=== PATIENT | female | born 1950 | race African-American/Black ===

== ENCOUNTER → 2021-10-26 | Day surgery (SDC) | payer OTHER, MEDICARE ==
--- NOTE | 2021-10-26 13:03 | RAD REPORT ---
EXAM DESCRIPTION: US - Guided FNA Non Breast - 10/26/2021 11:06 am CLINICAL HISTORY: Thyroid nodule ICD E04.1 COMPARISON: October 26 2021 ultrasound TECHNIQUE: Risks, benefits and alternatives of procedure explained to the patient and informed conse nt obtained. Skin and subcutaneous tissues anesthetized with lidocaine. Under sonographic guidance, five 25 gauge needle passes were obtained into the 2.9 centimeter nodule within the superior aspect of the left lobe of the thyroid. Five 25 gauge needle passes were then obtained into the 3.8 centimeter nodule within the inferior asp ect of the left lobe of the thyroid gland Specimens given to pathology. Patient experienced no immediate complication IMPRESSION: Fine-needle aspiration of a 2 nodules within the left lobe of the thyroid gland
--- NOTE | 2021-10-29 10:17 | RAD REPORT ---
EXAM DESCRIPTION: US - FINE NEEDLE ASPIRATION 2ND LES - 10/26/2021 11:06 am CLINICAL HISTORY: Thyroid nodule ICD E04.1 COMPARISON: October 26 2021 ultrasound TECHNIQUE: Risks, benefits and alternatives of procedure explained to the patient and informed conse nt obtained. Skin and subcutaneous tissues anesthetized with lidocaine. Under sonographic guidance, five 25 gauge needle passes were obtained into the 2.9 centimeter nodule within the superior aspect of the left lobe of the thyroid. Five 25 gauge needle passes were then obtained into the 3.8 centimeter nodule within the inferior asp ect of the left lobe of the thyroid gland Specimens given to pathology. Patient experienced no immediate complication IMPRESSION: Fine-needle aspiration of 2 nodules within the left lobe of the thyroid gland
== END ==
LOC: FNA 09:15
PROVIDERS: ATTEND Family Medicine
DX: E04.1 Nontoxic single thyroid nodule (principal)
CPT/HCPCS: 10006; 88162

== ENCOUNTER 2022-12-31 10:52 | Emergency (ER) | payer OTHER, MEDICARE ==
[2022-12-31] MEDS ORDERED: AMOX/K CLAV 875 MG TAB ONE (11:50)
[2022-12-31] MEDS ORDERED: TDAP (DIPHTH,PERTUSS(ACELL),TET VAC) 0.5 ML VIAL IMVAC ONE (11:51)
--- NOTE | 2022-12-31 12:32 | ER ---
Nurse's Notes [facility] Name: Pati Hoyt Age: 72 yrs Sex: Female : 1950 Arrival Date: 12/31/2022 Time: 10:52 Bed 10 Private MD: Diagnosis: Bitten by cat;Puncture wound without foreign body of hand Presentation: 12/31 11:11 Chief complaint: Patient states: her cat was angry she let in another cat, and bit her ap3 left hand multiple times, and the second time he didn't want to let go of her hand. patient called EMS to her home who cleaned and dressed her wound however EMS did not transport patient to the ED. Patient arrived POV. Coronavirus screen: At this time, the client does not indicate any symptoms associated with coronavirus-19. Ebola Screen: No symptoms or risks identified at this time. Initial Sepsis Screen: Does the patient meet any 2 criteria? No. Patient's initial sepsis screen is negative. Does the patient have a suspected source of infection? Yes: Skin breakdown/wound. Risk Assessment: Do you want to hurt yourself or someone else? Patient reports no desire to harm self or others. Onset of symptoms was December 31, 2022 at 09:30. Care prior to arrival: wound care provided by EMS on scene. 11:11 Method Of Arrival: Ambulatory ap3 11:11 Acuity: KELSIE 4 ap3 11:16 Note animal control notified by patient MANAGER OF SOFTWARE. ap3 Triage Assessment: 11:15 Bite description: bite sustained to left hand is from animal, by a cat, animal ap3 information: vaccination(s) is not up to date was sustained 2-4 hours ago. General: Appears in no apparent distress. Behavior is calm, cooperative, appropriate for age. Pain: Complains of pain in left hand. Neuro: Level of Consciousness is awake, alert, obeys commands, Oriented to person, place, time, situation. Cardiovascular: Patient's skin is warm and dry. Respiratory: Airway is patent Respiratory effort is even, unlabored, Respiratory pattern is regular, symmetrical. Derm: Wound noted left hand. Historical: - Allergies: 11:13 No Known Allergies; ap3 - Home Meds: 11:13 amlodipine 10 mg tablet [Active]; olmesartan 40 mg oral tablet daily [Active]; ap3 omeprazole 40 mg Oral capsule,delayed release (e.c.) [Active]; - PMHx: 11:13 Hypertensive disorder; ap3 - Immunization history:: Client reports receiving the 2nd dose of the Covid vaccine, Last tetanus immunization: unknown. - Social history:: Smoking status: Patient denies any tobacco usage or history of. Screenin:16 Abuse screen: Denies threats or abuse. Nutritional screening: No deficits noted. ap3 Tuberculosis screening: No symptoms or risk factors identified. Assessment: 12:41 Reassessment: Patient and/or family updated on plan of care and expected duration. Pain mb9 level reassessed. Patient is alert, oriented x 3, equal unlabored respirations, skin warm/dry/pink. Patient states feeling better. Patient states symptoms have improved. Vital Signs: 11:11 BP 116 / 79; Pulse 91; Resp 18; Temp 97.1; Pulse Ox 100% ; Weight 102.51 kg; Pain 2/10; ap3 11:11 Pain Scale: Adult ap3 ED Course: 10:55 Patient arrived in ED. ts1 11:01 Ally Kwok [facility]-C [facility]. snw 11:01 Kev Emerson MD is Attending Physician. snw 11:13 Triage completed. ap3 11:16 Arm band placed on right wrist. ap3 11:45 Noelle Page, RN is Primary Nurse. ss 12:21 XRAY Hand LEFT 3 View In Process Unspecified. EDMS 12:42 No provider procedures requiring assistance completed. Patient did not have IV access mb9 during this emergency room visit. Administered Medications: 11:45 Drug: Amoxicillin-Clavulanate PO 875 mg Route: PO; ss 12:34 Follow up: Response: No adverse reaction ss 11:46 Drug: Boostrix Tdap IM 0.5 ml {Note: [id number] 06/05/23 Electronic [employer].} Route: IM; Site: ss left deltoid; 12:34 Follow up: Response: No adverse reaction ss Outcome: 12:32 Discharge ordered by . snw 12:41 Discharged to home ambulatory, with family. mb9 12:41 Condition: stable 12:41 Discharge instructions given to patient, Instructed on discharge instructions, follow up and referral plans. Demonstrated understanding of instructions, follow-up care, medications, Prescriptions given X 2. 12:42 Patient left the ED. mb9 Signatures: Dispatcher [employer] EDMS Ally Kwok, M[employer] INSTRUCTIONAL DESIGNER-C [employer]IM[employer] INSTRUCTIONAL DESIGNER-Csnw Noelle Page, RN RN ss Vinita Brandt RN RN ap3 Aletha Garcia RN RN mb9 Sonal Brunner PAS PAS ts1
--- NOTE | 2022-12-31 12:32 | RAD REPORT ---
EXAM DESCRIPTION: RAD -Hand Left 3 View - 12/31/2022 12:20 pm CLINICAL HISTORY: Left hand pain status post injury FINDINGS: No fracture or dislocation is seen. A radiopaque foreign body is not seen
--- NOTE | 2022-12-31 12:32 | EDPHYS ---
Physician Documentation [facility] Name: Pati Hoyt Age: 72 yrs Sex: Female : 1950 Arrival Date: 12/31/2022 Time: 10:52 Bed 10 Private MD: ED Physician Kev Emerson HPI: 12/31 11:24 This 72 yrs old Black Female presents to ER via Ambulatory with complaints of Cat Bite. snw 11:24 The patient was bitten on the dorsum of left hand, by a cat, while approaching the snw animal, at home. Onset: The symptoms/episode began/occurred acutely. Animal information: The animal was reported to appear healthy. Animal's vaccinations are up to date. The animal is known and can be quarantined, Animal control has been notified. Secondary to the bite the patient reports multiple puncture wounds. Associated signs and symptoms: Pertinent positives: pain at site, swelling at site. Severity of symptoms: At their worst the symptoms were mild. The patient has not experienced similar symptoms in the past. Historical: - Allergies: 11:13 No Known Allergies; ap3 - Home Meds: 11:13 amlodipine 10 mg tablet [Active]; olmesartan 40 mg oral tablet daily [Active]; ap3 omeprazole 40 mg Oral capsule,delayed release (e.c.) [Active]; - PMHx: 11:13 Hypertensive disorder; ap3 - Immunization history:: Client reports receiving the 2nd dose of the Covid vaccine, Last tetanus immunization: unknown. - Social history:: Smoking status: Patient denies any tobacco usage or history of. ROS: 11:23 Constitutional: Negative for fever, chills, and weight loss, Eyes: Negative for injury, snw pain, redness, and discharge, ENT: Negative for injury, pain, and discharge, Neck: Negative for injury, pain, and swelling, Cardiovascular: Negative for chest pain, palpitations, and edema, Respiratory: Negative for shortness of breath, cough, wheezing, and pleuritic chest pain, Abdomen/GI: Negative for abdominal pain, nausea, vomiting, diarrhea, and constipation, Back: Negative for injury and pain, : Negative for injury, bleeding, discharge, and swelling, MS/Extremity: Negative for injury and deformity, Neuro: Negative for headache, weakness, numbness, tingling, and seizure, Psych: Negative for depression, anxiety, suicide ideation, homicidal ideation, and hallucinations. 11:23 Skin: Positive for puncture, cat bite. Exam: 11:23 Constitutional: This is a well developed, well nourished patient who is awake, alert, snw and in no acute distress. Head/Face: Normocephalic, atraumatic. Eyes: Pupils equal round and reactive to light, extra-ocular motions intact. Lids and lashes normal. Conjunctiva and sclera are non-icteric and not injected. Cornea within normal limits. Periorbital areas with no swelling, redness, or edema. Neck: Trachea midline, no thyromegaly or masses palpated, and no cervical lymphadenopathy. Supple, full range of motion without nuchal rigidity, or vertebral point tenderness. No Meningismus. Chest/axilla: Normal chest wall appearance and motion. Nontender with no deformity. No lesions are appreciated. Cardiovascular: Regular rate and rhythm with a normal S1 and S2. No gallops, murmurs, or rubs. Normal PMI, no JVD. No pulse deficits. Respiratory: Lungs have equal breath sounds bilaterally, clear to auscultation and percussion. No rales, rhonchi or wheezes noted. No increased work of breathing, no retractions or nasal flaring. Abdomen/GI: Soft, non-tender, with normal bowel sounds. No distension or tympany. No guarding or rebound. No evidence of tenderness throughout. Back: No spinal tenderness. No costovertebral tenderness. Full range of motion. MS/ Extremity: Pulses equal, no cyanosis. Neurovascular intact. Full, normal range of motion. Neuro: Awake and alert, GCS 15, oriented to person, place, time, and situation. Cranial nerves II-XII grossly intact. Motor strength 5/5 in all extremities. Sensory grossly intact. Cerebellar exam normal. Normal gait. Psych: Awake, alert, with orientation to person, place and time. Behavior, mood, and affect are within normal limits. 11:23 Skin: Appearance: normal except for affected area, injury, bite(s), punctures x 2 to left dorsal hand. Vital Signs: 11:11 BP 116 / 79; Pulse 91; Resp 18; Temp 97.1; Pulse Ox 100% ; Weight 102.51 kg; Pain 2/10; ap3 11:11 Pain Scale: Adult ap3 MDM: 11:06 Patient medically screened. snw 11:22 Differential diagnosis: cellulitis, puncture wounds. Data reviewed: vital signs, nurses snw notes. I considered the following discharge prescriptions or medication management in the emergency department Medications were administered in the Emergency Department. See MAR. Counseling: I had a detailed discussion with the patient and/or guardian regarding: the historical points, exam findings, and any diagnostic results supporting the discharge/admit diagnosis, the need for outpatient follow up, for definitive care, to return to the emergency department if symptoms worsen or persist or if there are any questions or concerns that arise at home. Special discussion: I discussed in detail with the patient the higher chance of wound infection based on his presenting history. Based on the history and exam findings, there is no indication for further emergent testing or inpatient evaluation. I discussed with the patient/guardian the need to see the primary care provider for further evaluation of the symptoms. 12/31 11:18 Order name: XRAY Hand LEFT 3 View; Complete Time: 12:33 snw 12/31 11:22 Order name: Wound Care; Complete Time: 11:33 snw 12/31 11:22 Order name: Wound dressing; Complete Time: 11:32 snw Administered Medications: 11:45 Drug: Amoxicillin-Clavulanate PO 875 mg Route: PO; ss 12:34 Follow up: Response: No adverse reaction ss 11:46 Drug: Boostrix Tdap IM 0.5 ml {Note: [id number] 06/05/23 myhub.} Route: IM; Site: ss left deltoid; 12:34 Follow up: Response: No adverse reaction ss Disposition: 13:03 Co-signature as Attending Physician, Kev Emerson MD I reviewed the patient's care rn provided by the Advanced Practice Provider and agree with the diagnosis and treatment plan. Disposition Summary: 12/31/22 12:32 Discharge Ordered Location: Home snw Condition: Stable snw Diagnosis - Bitten by cat snw - Puncture wound without foreign body of hand snw Followup: snw - With: Emergency Department - When: As needed - Reason: Worsening of condition Followup: snw - With: Private Physician - When: 1 - 2 days - Reason: Recheck today's complaints, Continuance of care, Re-evaluation by your physician Discharge Instructions: - Discharge Summary Sheet snw - Puncture Wound snw - Animal Bite, Adult snw Forms: - Medication Reconciliation Form snw - Thank You Letter snw - Antibiotic Education snw - Prescription Opioid Use snw - Patient Portal Instructions snw - Leadership Thank You Letter snw Prescriptions: - Augmentin 875-125 mg Oral Tablet - take 1 tablet by ORAL route every 12 hours for 10 days; 20 tablet; Refills: 0, snw Product Selection Permitted - Tramadol 50 mg Oral Tablet - take 1 tablet by ORAL route every 8 hours as needed; 12 tablet; Refills: 0, snw Product Selection Permitted Signatures: Dispatcher [employer] EDMS Ally Kwok, [employer]-C [employer]-Csnw Kev Emerson MD MD rn Blanchard, Shelby RN RN ss Vinita Brandt RN RN ap3
[2022-12-31 12:53] VITALS: BP 116/79; TEMP 97.1; O2SAT 100
== END 2022-12-31 12:42 | disposition home or self-care (01) ==
LOC: ER 10:52
DX: S61.432A Puncture wound without foreign body of left hand, initial encounter (principal); W55.01XA Bitten by cat, initial encounter; I10 Essential (primary) hypertension
CPT/HCPCS: 96372; 99284